=== PATIENT | male | born 1980 | race Caucasian/White ===

== ENCOUNTER 2024-12-09 00:21 | Emergency (ER) | payer SELFPAY ==
--- OUTSIDE RECORDS SUMMARY | 2024-12-09 00:25 | XMS REPORT | Continuity of Care Document ---
Author Name Unknown Address [address] [place] [address] [place] [id number] Care Team Providers Care Manager Hydraulic Name Role Phone Unavailable Unavailable Unavailable Encounters Start Date/Time End Date/Time Encounter Type Admission Type Attending Clinicians Care Facility Care Department Encounter ID Source 2017-10-07 00:00:00 2017-10-14 00:00:00 Outpatient HCSO H[facility]O [id number] [facility]
[2024-12-09] MEDS ORDERED: HYDROCODONE/APAP 5/325 MG TAB ONE (00:43)
[2024-12-09 01:01] LABS: Absolute Basophils 0.1 K/uL (0-0.5); Absolute Eosinophils 1.7 K/uL (0-0.5); Absolute Lymphocytes (CBC) 2.9 K/uL (0.7-4.9); Absolute Monocytes 1.1 K/uL (0.1-1.3); Absolute Neutrophil 4.3 K/uL (1.8-8.0); Basophils % 1.3 % (0-1.3); Eosinophils % 16.6 % (0-4.4); Hematocrit 39.7 % (39.6-49.0); Lymphocytes % 28.7 % (15.3-44.8); MCH 25.9 pg (27.0-35.0); MCHC 32.8 g/dL (32.0-36.0); MCV 79.2 fL (80-100); MPV 8.3 fL (7.6-11.3); Monocytes % 10.9 % (3.3-12.3); Neutrophils % 42.5 % (41.7-73.7); Nucleated Red Blood Cells % 0.3 % (0-0); Platelets 267 thou/uL (152-406); RBC Red Blood Cell Count 5.01 M/uL (4.33-5.43); Red Cell Distribution Width 16.6 % (12.1-15.2)
[2024-12-09 01:12] LABS: Anion Gap 11.9 mEq/L (5.0-15.0); Potassium 3.9 mEq/L (3.5-5.1); Troponin High Sensitivity 17.6 pg/mL (<58.9)
--- NOTE | 2024-12-09 02:28 | EDPHYS ---
Physician Documentation [facility] Name: Aiden Clemens Age: 44 yrs Sex: Male : 1980 Arrival Date: 12/09/2024 Time: 00:21 Bed 4 Private MD: ED Physician David Barbosa HPI: 12/09 00:40 This 44 yrs old Male presents to ER via EMS with complaints of Chest Pain. rn 00:49 Patient reports pulled over by police and began to have chest pain and shortness of rn breath. Patient reports just discharged 2 days ago from hospital for congestive heart failure and is taking his Lasix. Reports overall doing better than when he was in the hospital.. Historical: - PMHx: 00:25 Hypertensive disorder; kd3 - Immunization history:: Adult Immunizations up to date. - Infectious Disease History:: Denies. - Family history:: not pertinent. - Social history:: Smoking status: unknown. - Hospitalizations: : No recent hospitalization is reported. ROS: 00:49 Constitutional: Negative for fever, chills, and weight loss, Eyes: Negative for injury, rn pain, redness, and discharge, Neck: Negative for injury, pain, and swelling, Cardiovascular: Positive for chest pain Respiratory: Positive for shortness of breath Abdomen/GI: Negative for abdominal pain, nausea, vomiting, diarrhea, and constipation, Back: Negative for injury and pain, MS/Extremity: Negative for injury and deformity, Skin: Negative for injury, rash, and discoloration, Neuro: Negative for headache, weakness, numbness, tingling, and seizure, Exam: 00:49 Constitutional: This is a well developed, well nourished patient who is awake, alert, rn crying and hyperventilating. Ambulatory to room without assistance Cardiovascular: Tachycardic, regular. No pulse deficits. Respiratory: Hyperventilating but is crying at the time MS/ Extremity: Pulses equal, no cyanosis. 1+ edema bilateral lower extremities Neuro: Awake and alert, GCS 15, oriented to person, place, time, and situation. Cranial nerves II-XII grossly intact. Motor strength 5/5 in all extremities. Sensory grossly intact. Cerebellar exam normal. Normal gait. 00:54 ECG was reviewed by the Attending Physician. rn Vital Signs: 00:51 BP 133 / 102; Pulse 109; Resp 20; Temp 99(O); Pulse Ox 96% on R/A; kd3 01:34 BP 140 / 95; Pulse 103; Resp 19; Pulse Ox 96% on R/A; kd3 02:46 BP 135 / 91; Pulse 95; Resp 18; Temp 99; Pulse Ox 98% ; Pain 3/10; bm8 02:46 Pain Scale: Adult bm8 [place] Coma Score: 02:46 Eye Response: spontaneous(4). Motor Response: obeys commands(6). Verbal Response: bm8 oriented(5). Total: 15. MDM: 00:23 Medical Screening Exam initiated rn 02:03 ED course: Patient's x-ray and BNP is improved compared to previous hospitalization and rn just discharged 2 days ago. No oxygen requirement. Recommended IV Lasix given does show mild pulmonary edema on chest x-ray images and patient declines. Understands that if he goes to senior care without Lasix that he could get worse and still declines medication now.. 02:27 Differential diagnosis: acute myocardial infarction, acute pericarditis, anxiety, rn coronary artery disease congestive heart failure pleurisy, pneumothorax. HEART Score: History: Slightly Suspicious (0), ECG: Normal (0), Age: < or = 45 years (0), Risk Factors: 1 or 2 risk factors (1), Troponin: < or = 1 x Normal Limit (0), Total Score = 1. Data reviewed: vital signs, nurses notes, lab test result(s), EKG, radiologic studies, plain films, and as a result, I will discharge patient. Counseling: I had a detailed discussion with the patient and/or guardian regarding the historical points, exam findings, and any diagnostic results supporting the discharge/admit diagnosis, lab results, radiology results, the need for outpatient follow up, to return to the emergency department if symptoms worsen or persist or if there are any questions or concerns that arise at home. Special discussion: I discussed with the patient/guardian in detail that at this point there is no indication for admission to the hospital. It is understood, however, that if the symptoms persist or worsen the patient needs to return immediately for re-evaluation. 02:29 Counseling: I had a detailed discussion with the patient and/or guardian regarding the rn presence of at least one elevated blood pressure reading (>120/80) during this emergency department visit. Special discussion: I have referred the patient to see his PCP for further evaluation of high blood pressure. 12/09 00:24 Order name: CBC with Diff rn 12/09 00:24 Order name: Basic Metabolic Panel; Complete Time: 01:43 rn 12/09 00:24 Order name: BNP; Complete Time: 01:43 rn 12/09 00:26 Order name: Troponin High Sensitivity; Complete Time: :43 rn 12/09 01:23 Order name: Manual Differential EDMS 12/09 00:24 Order name: XRAY Chest (1 view) rn 12/09 00:24 Order name: EKG; Complete Time: 00:24 rn 12/09 00:24 Order name: IV Start; Complete Time: 00:51 rn 12/09 00:24 Order name: EKG - Nurse/Tech; Complete Time: 00:51 rn 12/09 00:24 Order name: Cardiac monitoring; Complete Time: 00:53 rn 12/09 00:24 Order name: O2 Sat Monitoring; Complete Time: 00:53 rn EC:54 Rate is 110 beats/min. Rhythm is regular. QRS [place] is Normal. [place] interval is normal. rn QRS interval is normal. QT interval is normal. No Q waves. T waves are Normal. No ST changes noted. Clinical impression: Sinus tachycardia. Interpreted by me. Reviewed by me. Administered Medications: 00:50 Drug: HYDROcodone-acetaminophen PO 5 mg-325 mg 1 tabs PO once Route: PO; kd3 02:48 Follow up: Response: No adverse reaction bm8 Disposition Summary: 12/09/24 02:28 Discharge Ordered Notes: Location: Home rn Problem: new rn Symptoms: have improved rn Condition: Stable rn Diagnosis - Chest pain, unspecified rn - Unspecified combined systolic (congestive) and diastolic (congestive) heart failure rn Followup: rn - With: Private Physician - When: As needed - Reason: Recheck today's complaints, Re-evaluation by your physician Discharge Instructions: - Discharge Summary Sheet rn - Nonspecific Chest Pain, Adult rn - Hypertension, Adult rn Forms: - Medication Reconciliation Form rn - Antibiotic acetylene burner - Prescription Opioid Use rn - Patient Portal Instructions rn - Leadership Thank You Letter rn Signatures: Dispatcher [employer] EDMO David Barbosa MD MD rn Doucette, Kyli, RN RN kd3 Moreno, Daniel RN bm8 Corrections: (The following items were deleted from the chart) 00:26 00:26 Troponin High Sensitivity+C.LAB.BRZ ordered. EDMS EDMS 00:49 00:49 Constitutional: Negative for fever, chills, and weight loss, Cardiovascular: rn Positive for chest pain Respiratory: Positive for shortness of breath Abdomen/GI: Negative for abdominal pain, nausea, vomiting, diarrhea, and constipation, MS/Extremity: Negative for injury and deformity, Skin: Negative for injury, rash, and discoloration, Neuro: Negative for headache, weakness, numbness, tingling, and seizure, rn
--- NOTE | 2024-12-09 02:28 | ER ---
Nurse's Notes [facility] Name: Aiden Clemens Age: 44 yrs Sex: Male : 1980 Arrival Date: 12/09/2024 Time: 00:21 Bed 4 Private MD: Diagnosis: Chest pain, unspecified;Unspecified combined systolic (congestive) and diastolic (congestive) heart failure Presentation: 12/09 00:24 Chief complaint: EMS states: Patient was arrested at a traffic stop and started to kd3 complain of chest pains. Pt has a history of CHF. On scene, pt was crying in pain. Pt vss. Pt accompanied by officer. Ebola Screen: No symptoms or risks identified at this time. Initial Sepsis Screen: Does the patient meet any 2 criteria? No. Patient's initial sepsis screen is negative. Does the patient have a suspected source of infection? No. Patient's initial sepsis screen is negative. Risk Assessment: Do you want to hurt yourself or someone else? Patient reports no desire to harm self or others. Onset of symptoms was December 09, 2024. 00:24 Method Of Arrival: EMS: [facility] kd3 00:24 Acuity: RAHEEL 3 kd3 00:52 Coronavirus screen: unknown. kd3 Triage Assessment: 00:52 General: Appears uncomfortable, Behavior is calm, cooperative. Pain: Complains of pain kd3 in chest. Cardiovascular: Capillary refill < 3 seconds Patient's skin is warm and dry. Historical: - PMHx: 00:25 Hypertensive disorder; kd3 - Immunization history:: Adult Immunizations up to date. - Infectious Disease History:: Denies. - Family history:: not pertinent. - Social history:: Smoking status: unknown. - Hospitalizations: : No recent hospitalization is reported. Screenin:52 [facility] ED Fall Risk Assessment (Adult) History of falling in the last 3 months, kd3 including since admission No falls in past 3 months (0 pts) Confusion or Disorientation No (0 pts) Intoxicated or Sedated No (0 pts) Impaired Gait No (0 pts) Mobility Assist Device Used No (0 pt) Altered Elimination No (0 pt) Score/Fall Risk Level 0 - 2 = Low Risk Maintained a safe environment. Abuse screen: Denies threats or abuse. Denies injuries from another. Nutritional screening: No deficits noted. Tuberculosis screening: No symptoms or risk factors identified. Assessment: 00:53 Pain: Pain does not radiate. Pain began suddenly. kd3 00:56 General: Appears uncomfortable, Behavior is crying. Pain: Complains of pain in left kd3 eye. Neuro: Level of Consciousness is awake, alert, obeys commands, Oriented to person, place, time, situation. Cardiovascular: Capillary refill < 3 seconds Patient's skin is warm and dry. 00:57 General: Pt provided an ice pack for left eye/cheek bone pain . kd3 02:46 Reassessment: Patient appears in no apparent distress at this time. Patient and/or bm8 family updated on plan of care and expected duration. Pain level reassessed. Patient is alert, oriented x 3, equal unlabored respirations, skin warm/dry/pink. Patient states feeling better. Patient states symptoms have improved. Vital Signs: 00:51 BP 133 / 102; Pulse 109; Resp 20; Temp 99(O); Pulse Ox 96% on R/A; kd3 01:34 BP 140 / 95; Pulse 103; Resp 19; Pulse Ox 96% on R/A; kd3 02:46 BP 135 / 91; Pulse 95; Resp 18; Temp 99; Pulse Ox 98% ; Pain 3/10; bm8 02:46 Pain Scale: Adult bm8 [place] Coma Score: 02:46 Eye Response: spontaneous(4). Motor Response: obeys commands(6). Verbal Response: bm8 oriented(5). Total: 15. ED Course: 00:22 Patient arrived in ED. jj6 00:23 David Barbosa MD is Attending Physician. rn 00:24 Conchita Galeano RN is Primary Nurse. kd3 00:25 Triage completed. kd3 00:51 Troponin High Sensitivity Sent. kd3 00:51 BNP Sent. kd3 00:51 Basic Metabolic Panel Sent. kd3 00:51 CBC with Diff Sent. kd3 00:51 No provider procedures requiring assistance completed. Inserted saline lock: 22 gauge kd3 in right antecubital area, using aseptic technique. Blood collected. Flushed with 10 mL NS. Patient maintains SpO2 saturation greater than 95% on room air. 00:52 Arm band placed on right wrist. kd3 00:53 Patient has correct armband on for positive identification. Provided Education on: EKG kd3 . Client placed on continuous cardiac and pulse oximetry monitoring. NIBP monitoring applied. monitor worker on. 01:01 XRAY Chest (1 view) In Process Unspecified. EDMS 02:46 IV discontinued, intact, bleeding controlled, No redness/swelling at site. Pressure bm8 dressing applied. Administered Medications: 00:50 Drug: HYDROcodone-acetaminophen PO 5 mg-325 mg 1 tabs PO once Route: PO; kd3 02:48 Follow up: Response: No adverse reaction bm8 Medication: 00:53 VIS not applicable for this client. kd3 Outcome: 02:28 Discharge ordered by . rn 02:46 Discharged to Law Enforcement bm8 02:46 Condition: stable 02:46 Discharge instructions given to patient, police, Instructed on discharge instructions, follow up and referral plans. no drinking with medication, no driving heavy equipment, medication usage, Demonstrated understanding of instructions, follow-up care, medications, 02:48 Patient left the ED. bm8 Signatures: Dispatcher [employer] EDMS David Barbosa MD MD rn Jeffries, Jennifer jj6 Doucette, Kyli RN RN kd3 Daniel Moreno, RN RN bm8
[2024-12-09 03:02] VITALS: TEMP 99
[2024-12-09 03:13] LABS: Band Neutrophils 2 % (0-1); Differential Total Cells Count 100; Eosinophils 18 % (0-3); Lymphocytes 30 % (15-42); Monocytes 6 % (0-10); Reactive Lymphocytes 2 %; Segmented Neutrophils 42 % (40-80)
[2024-12-09 03:14] VITALS: BP 135/91; O2SAT 98
[2024-12-09 03:14] LABS: Blood Morphology Comment NOT SEEN (NOT SEEN); Platelet Estimate ADEQ
--- NOTE | 2024-12-09 05:12 | RAD REPORT ---
EXAM DESCRIPTION: Chest Single View CLINICAL HISTORY: DYSPNEA COMPARISON: None TECHNIQUE: Single AP view of the chest. FINDINGS: Lung volumes adequate. Cardiac silhouette is enlarged. No pneumothorax. No large pleural effusion. No focal consolidation. No acute bony finding. Chronic appearing deformity of the left clavicle. IMPRESSION: 1. No acute cardiopulmonary findings. 2. Enlarged cardiac silhouette. Electronically signed by: Sari Calabrese MD 12/09/2024 02:22 AM CDT RP TYG Due to temporary technical issues with the [employer]ACS/[employer] reporting system, reports are being anuel d by the in-house radiologist without review as a courtesy to ensure prompt reporting the interpreting radiologist is fully responsible for the content of the report. Transcribed Date/Time: 12/09/2024 5:12 AM
--- NOTE | 2024-12-14 12:40 | EKG ---
Test Date: 2024-12-09 Test Time: 00:46:47 Journeyman Carpenter: CHELO MEASUREMENT RESULTS: Intervals: Rate: 110 AK: 182 QRSD: 90 QT: 350 QTc: 473 [place]: P: 63 AK: 182 QRS: 13 T: 60 INTERPRETIVE STATEMENTS: Sinus tachycardia Possible Anterior infarct, age undetermined Abnormal ECG Compared to ECG 12/01/2024 09:14:18 No significant changes Electronically Signed On 12-14-24 12:29:16 CDT by Leryo Dykes
== END 2024-12-09 02:48 | disposition home or self-care (01) ==
LOC: ER 00:21
DX: R07.9 Chest pain, unspecified (principal); I50.40 Unspecified combined systolic (congestive) and diastolic (congestive) heart failure; I10 Essential (primary) hypertension
CPT/HCPCS: 36415; 71045; 80048; 83880; 84484; 85025; 93005; 99284

== ENCOUNTER 2024-12-09 10:25 | Emergency (ER) | payer SELFPAY ==
--- OUTSIDE RECORDS SUMMARY | 2024-12-09 10:28 | XMS REPORT | Continuity of Care Document ---
Author Name Unknown Address [address] [place] [address] [place] [address] Care Team Providers Care Drug Regulatory Affairs Specialist Name Role Phone Unavailable Unavailable Unavailable Encounters Start Date/Time End Date/Time Encounter Type Admission Type Attending Clinicians Care Facility Care Department Encounter ID Source 2017-10-07 00:00:00 2017-10-14 00:00:00 Outpatient HCSO HCSO [id number] [facility]
--- NOTE | 2024-12-09 11:41 | ER ---
Nurse's Notes [facility] Name: Aiden Clemens Age: 44 yrs Sex: Male : 1980 Arrival Date: 12/09/2024 Time: 10:25 Bed 6 Private MD: Diagnosis: Chest pain, CHF Presentation: 12/09 10:29 Chief complaint: EMS states: was d/c from ER this morning, was worked up for chest iw pain, SOB, he refused Lasix, was newly dx with CHF,currently in police custody , was c/o continued chest pain and SOB. Coronavirus screen: Client presents with at least one sign or symptom that may indicate coronavirus-19. Ebola Screen: No symptoms or risks identified at this time. Initial Sepsis Screen: Does the patient meet any 2 criteria? HR > 90 bpm. Does the patient have a suspected source of infection? No. Patient's initial sepsis screen is negative. Risk Assessment: Do you want to hurt yourself or someone else? Patient reports no desire to harm self or others. 10:29 Method Of Arrival: EMS: [facility] iw 10:29 Acuity: RAHEEL 3 iw Historical: - Allergies: 10:31 No Known Allergies; iw - Home Meds: 10:31 None [Active]; iw - PMHx: 10:31 Hypertensive disorder; Congestive heart failure; iw - PSHx: 10:31 None; iw - Immunization history:: Adult Immunizations not up to date. - Infectious Disease History:: Denies. - Social history:: Smoking status: Patient/guardian denies using tobacco, Stopped _ months ago 1. Screenin:33 [facility] ED Fall Risk Assessment (Adult) History of falling in the last 3 months, iw including since admission No falls in past 3 months (0 pts) Confusion or Disorientation No (0 pts) Intoxicated or Sedated No (0 pts) Impaired Gait No (0 pts) Mobility Assist Device Used No (0 pt) Altered Elimination No (0 pt) Score/Fall Risk Level 0 - 2 = Low Risk Oriented to surroundings, Maintained a safe environment. Abuse screen: Denies threats or abuse. Nutritional screening: No deficits noted. Tuberculosis screening: No symptoms or risk factors identified. Assessment: 10:32 General: Appears in no apparent distress. Behavior is calm, cooperative. Pain: iw Complains of pain in chest Pain does not radiate. Pain began Is continuous. Neuro: Level of Consciousness is awake, alert, obeys commands, Oriented to person, place, time, situation, Moves all extremities. Cardiovascular: Reports chest pain, shortness of breath, Patient's skin is warm and dry. Rhythm is regular. Respiratory: Reports shortness of breath at rest on exertion Respiratory effort is even, unlabored, Respiratory pattern is regular, symmetrical, the patient has mild shortness of breath. GI: Abdomen is round obese. 11:52 Reassessment: Patient appears in no apparent distress at this time. Patient and/or ph family updated on plan of care and expected duration. Pain level reassessed. Patient is alert, oriented x 3, equal unlabored respirations, skin warm/dry/pink. Vital Signs: 10:32 BP 133 / 94; Pulse 95; Resp 19; Temp 98.1; Pulse Ox 97% on R/A; Weight 149.69 kg; iw Height 6 ft. 0 in. ; Pain 10/10; 11:52 BP 119 / 80; Pulse 87; Resp 18; Temp 97.8; Pulse Ox 99% ; ph 10:32 Body Mass Index 44.76 (149.69 kg, 182.88 cm) iw 10:32 Pain Scale: Adult iw ED Course: 10:27 Patient arrived in ED. ap3 10:27 Barry Juares MD is Attending Physician. sp3 10:28 Elisa Reina RN is Primary Nurse. iw 10:31 Triage completed. iw 10:32 Arm band placed on. iw 10:37 EKG done, by ED staff, reviewed by Barry Juares MD. nh2 Administered Medications: 11:52 Drug: Furosemide IVP 40 mg IVP once; give over 2 minutes Route: IVP; Site: left ph antecubital; 11:53 Follow up: Response: No adverse reaction; Medication administered at discharge. ph Medication: 10:34 VIS not applicable for this client. iw Outcome: 11:40 Discharge ordered by . sp3 11:59 Patient left the ED. ph Signatures: Elisa Reina RN RN Lanie Echols RN RN Dodie Harrison RN RN ap3 Barry Juares MD MD sp3 Deric Dumont Jr nh2
--- NOTE | 2024-12-09 11:41 | EDPHYS ---
Physician Documentation [facility] Name: Aiden Clemens Age: 44 yrs Sex: Male : 1980 Arrival Date: 12/09/2024 Time: 10:25 Bed 6 Private MD: ED Physician Barry Juares HPI: 12/09 10:42 This 44 yrs old Male presents to ER via EMS with complaints of Chest Pain. sp3 10:42 44-year-old male with history of hypertension and CHF presents to the ED with chief sp3 complaint recurrent chest pain. Patient was seen here approximately [address] Barbosa on the real [employer] where patient presented for similar symptoms while in custody of the police. Patient is still in custody of police. He was worked up and discharged home at that time. Only lab abnormality was BNP elevation at 2500. Troponin was negative and EKG demonstrated no significant findings. Initially patient was tachycardic at 110 but was normal and heart rate during discharge. Patient presents again for similar symptoms. ROS negative for headache, fever, neck pain, shortness of breath, abdominal pain, vomiting, diarrhea, syncope, trauma, or any other signs or symptoms on ROS at this time.. Historical: - Allergies: 10:31 No Known Allergies; iw - Home Meds: 10:31 None [Active]; iw - PMHx: 10:31 Hypertensive disorder; Congestive heart failure; iw - PSHx: 10:31 None; iw - Immunization history:: Adult Immunizations not up to date. - Infectious Disease History:: Denies. - Social history:: Smoking status: Patient/guardian denies using tobacco, Stopped _ months ago 1. ROS: 10:43 Constitutional: Negative for fever, chills, and weight loss, Eyes: Negative for injury, sp3 pain, redness, and discharge, ENT: Negative for injury, pain, and discharge, Neck: Negative for injury, pain, and swelling, Respiratory: Negative for shortness of breath, cough, wheezing, and pleuritic chest pain, Abdomen/GI: Negative for abdominal pain, nausea, vomiting, diarrhea, and constipation, Back: Negative for injury and pain, MS/Extremity: Negative for injury and deformity, Skin: Negative for injury, rash, and discoloration, Neuro: Negative for headache, weakness, numbness, tingling, and seizure, Psych: Negative for depression, anxiety, suicide ideation, homicidal ideation, and hallucinations, Allergy/Immunology: Negative for hives, rash, and allergies, Endocrine: Negative for neck swelling, polydipsia, polyuria, polyphagia, and marked weight changes, Hematologic/Lymphatic: Negative for swollen nodes, abnormal bleeding, and unusual bruising, 10:43 All other systems are negative, Exam: 10:44 Constitutional: This is a well developed, well nourished patient who is awake, alert, sp3 and in no acute distress. Head/Face: Normocephalic, atraumatic. Eyes: Pupils equal round and reactive to light, extra-ocular motions intact. Lids and lashes normal. Conjunctiva and sclera are non-icteric and not injected. Cornea within normal limits. Periorbital areas with no swelling, redness, or edema. Neck: Trachea midline, no thyromegaly or masses palpated, and no cervical lymphadenopathy. Supple, full range of motion without nuchal rigidity, or vertebral point tenderness. No Meningismus. Chest/axilla: Normal chest wall appearance and motion. Nontender with no deformity. No lesions are appreciated. Cardiovascular: Regular rate and rhythm with a normal S1 and S2. No gallops, murmurs, or rubs. Normal PMI, no JVD. No pulse deficits. Respiratory: Lungs have equal breath sounds bilaterally, clear to auscultation and percussion. No rales, rhonchi or wheezes noted. No increased work of breathing, no retractions or nasal flaring. Abdomen/GI: Soft, non-tender, with normal bowel sounds. No distension or tympany. No guarding or rebound. No evidence of tenderness throughout. Back: No spinal tenderness. No costovertebral tenderness. Full range of motion. Skin: Warm, dry with normal turgor. Normal color with no rashes, no lesions, and no evidence of cellulitis. MS/ Extremity: Pulses equal, no cyanosis. Neurovascular intact. Full, normal range of motion. Neuro: Awake and alert, GCS 15, oriented to person, place, time, and situation. Cranial nerves II-XII grossly intact. Motor strength 5/5 in all extremities. Sensory grossly intact. Cerebellar exam normal. Normal gait. Psych: Awake, alert, with orientation to person, place and time. Behavior, mood, and affect are within normal limits. 11:05 ECG was reviewed by the Attending Physician. EKG demonstrates normal sinus rhythm at 92 sp3 bpm with normal intervals,, normal axis and normal ST/changes without evidence of acute ischemia. Vital Signs: 10:32 BP 133 / 94; Pulse 95; Resp 19; Temp 98.1; Pulse Ox 97% on R/A; Weight 149.69 kg; iw Height 6 ft. 0 in. ; Pain 10/10; 11:52 BP 119 / 80; Pulse 87; Resp 18; Temp 97.8; Pulse Ox 99% ; ph 10:32 Body Mass Index 44.76 (149.69 kg, 182.88 cm) iw 10:32 Pain Scale: Adult iw MDM: 10:28 Medical Screening Exam initiated sp3 10:44 Data reviewed: vital signs, nurses notes, old medical records, lab test result(s), EKG. sp3 ED course: 44-year-old male with recurrent chest pain while in custody of the police. I reviewed the entire workup from 10 hours ago. Will obtain repeat EKG, troponin and BNP. Patient also complained of epigastric pain so we will add lipase. If workup negative this will essentially rule patient out and we will discharge back to police custody.. 11:38 ED course: Troponin negative. BNP 2800. Vital signs normal and EKG normal. Will sp3 discharge patient back at this time. We will give 1 dose of Lasix prior to discharge.. 12/09 10:29 Order name: Troponin HS; Complete Time: 11:15 sp3 12/09 10:29 Order name: BNP; Complete Time: 11:15 sp3 12/09 10:51 Order name: Lipase; Complete Time: 11:15 EDMS 12/09 10:29 Order name: EKG - Nurse/Tech; Complete Time: 10:37 sp3 12/09 10:29 Order name: Labs collected and sent; Complete Time: 10:44 sp3 Administered Medications: 11:52 Drug: Furosemide IVP 40 mg IVP once; give over 2 minutes Route: IVP; Site: left ph antecubital; 11:53 Follow up: Response: No adverse reaction; Medication administered at discharge. ph Disposition Summary: 12/09/24 11:40 Discharge Ordered Notes: Location: Home sp3 Condition: Stable sp3 Diagnosis - Chest pain, CHF sp3 Followup: sp3 - With: Private Physician - When: Upon discharge from the Emergency Department - Reason: Continuance of care Discharge Instructions: - Discharge Summary Sheet sp3 - Heart Failure Action Plan sp3 Forms: - Medication Reconciliation Form sp3 - Antibiotic Education sp3 - Prescription Opioid Use sp3 - Patient Portal Instructions sp3 - Leadership Thank You Letter sp3 Prescriptions: - Lasix 20 mg Oral Tablet - take 1 tablet ORAL route once daily; 20 tablet; Refills: 0, Product Selection sp3 Permitted Signatures: Dispatcher [employer] EDMS Elisa Reina, RN RN Lanie Echols RN RN Barry Juares MD MD sp3 Corrections: (The following items were deleted from the chart) 10:29 10:29 Troponin High Sensitivity+C.LAB.BRZ ordered. EDMS EDMS 10:30 10:30 PROBNP+C.LAB.BRZ ordered. EDMS EDMS 10:51 10:32 LIPASE+C.LAB.BRZ ordered. EDMS EDMS
[2024-12-09] MEDS ORDERED: FUROSEMIDE 40 MG/4 ML VIAL ONE (11:44)
[2024-12-09 12:05] VITALS: BP 119/80; TEMP 97.8; O2SAT 99
== END 2024-12-09 11:59 | disposition home or self-care (01) ==
LOC: ER 10:25
DX: R07.9 Chest pain, unspecified (principal); I11.0 Hypertensive heart disease with heart failure; I50.9 Heart failure, unspecified; Z87.891 Personal history of nicotine dependence
CPT/HCPCS: 36415; 83690; 83880; 84484; 93005; 96374; 99284; J1938